=== PATIENT | male | born 1995 | race Caucasian/White ===

== ENCOUNTER → 2020-10-18 | Emergency (ER) | payer OTHER ==
[~2020-10-18] MED LIST: IBUPROFEN600 MG PO
[2020-10-18 08:08] LABS: HEMOGLOBIN 14.5 gm/dl (14.0-17.5); RED BLOOD COUNT 4.79 M/UL (4.20-5.50); WHITE BLOOD COUNT 7.8 K/UL (4.5-11.0)
[2020-10-18 08:10] LABS: BUN/CREATININE RATIO 14 (0-10)
== END | disposition home or self-care (01) ==
LOC: ER1 04:31
PROVIDERS: Emergency Medicine
DX: M25.561 Pain in right knee (principal); F17.210 Nicotine dependence, cigarettes, uncomplicated
CPT/HCPCS: 80048; 85025; 85379; 99283